=== PATIENT | male | born 1940 | race American Indian/Alaskan Native ===

== ENCOUNTER 2016-11-19 05:25 | Emergency (ER) | payer MEDICARE ==
[2016-11-19] MEDS ORDERED: NORMODYNE IV ONE (05:39)
[2016-11-19] MEDS: NORMODYNE IV ONE (05:45)
[2016-11-19] MEDS ORDERED: NARCAN 2 MG/2 ML ONE (05:47)
[2016-11-19] MEDS: NARCAN 2 MG/2 ML IV ONE (06:05)
[2016-11-19 06:28] LABS: Basophils % (Auto) 0.3 % (0.0-1.8); Eosinophils % (Auto) 0.4 % (0.0-4.3); Hematocrit 32.5 % (35.5-45.6); Hemoglobin 10.5 gm/dl (11.8-15.2); Mean Corpuscular HGB Conc 32 % (32-34); Mean Corpuscular Hemoglobin 31 pg (28-32); Mean Corpuscular Volume 95 fl (84-94); Platelet Count 183 K/mm3 (140-440); Red Blood Count 3.44 M/mm3 (3.65-5.03); Red Cell Distribution Width 14.8 % (13.2-15.2); White Blood Count 11.5 K/mm3 (4.5-11.0)
--- NOTE | 2016-11-19 06:33 | Cat Scan Report ---
FINAL REPORT PROCEDURE: CT HEAD/BRAIN WO CON TECHNIQUE: Computerized tomography of the head was performed without contrast material. HISTORY: Altered Mental Status COMPARISON: No prior studies are available for comparison. FINDINGS: Skull and scalp: Normal. Paranasal sinuses: Mucous retention cyst or polyp in the left maxillary sinus is noted. Slight opacification of the posterior sphenoid sinuses. Ventricles and subarachnoid spaces: Normal. Cerebrum: Mild atrophy and slight periventricular deep white matter changes are noted. Old benign calcifications identified in the basal ganglia region bilaterally.. Cerebellum and brainstem: No evidence of hemorrhage, acute infarction or mass. Vasculature: Normal. Comments: None. IMPRESSION: There is no evidence of an acute intracranial process. Mild atrophy and periventricular deep white matter changes.
[2016-11-19 06:39] LABS: Urine Drugs of Abuse Note Disclamer
[2016-11-19 06:46] LABS: Albumin 3.7 g/dL (3.9-5); Albumin/Globulin Ratio 1.1 %; BUN/Creatinine Ratio 13.39; Bilirubin,Total 0.2 mg/dL (0.1-1.2); Chloride 102.9 mmol/L (98-107); Magnesium 2.4 mg/dL (1.7-2.3); Potassium 3.7 mmol/L (3.6-5.0); Total Protein 7.2 g/dL (6.3-8.2)
--- NOTE | 2016-11-19 07:07 | Emergency Department Report ---
HPI - General Chief Complaint: Altered Mental Status Time Seen by Provider: 11/19/16 06:52 - HPI HPI: Room 8 The patient is a 76-year-old male presenting with a chief complaint of hypoglycemia. The patient was reportedly found at his residential with altered mental status. An Accu-Chek taken at that time revealed a glucose of 43. EMS states the patient was administered medication for the hypoglycemia with his altered mental status did not improve. Upon EMS arrival the patient had snoring respirations and pinpoint pupils with shallow respirations. EMS administered Narcan states the patient will showed signs of waking up." In the ED the patient's gave him a cookie and the patient began to perk up. The patient currently denies complaints. Patient specifically denies having pain of any type, nausea or shortness of breath. Location: Mental state Duration: [see above] Quality: Altered Severity: Moderate Modifying factors: [see above] Context: [see above] Mode of transportation: [not driving] ED Past Medical Hx - Past Medical History Previous Medical History?: Yes Hx Hypertension: Yes Hx Diabetes: Yes Hx Psychiatric Treatment: Yes (major depressive disoder) Additional medical history: Generalized weakness,Anemia,unspecified injury at C7 , retinal edema, Vit D deficiency, catarac unspecified eye,CVD,Neurogenic Bowel, intervertebral Disc Degeneration Lumbar region, muscle spasm,CKD,Benign Prostate Hyperplasia with lower urinary tract symptoms, intraoccular lens - Surgical History Past Surgical History?: Yes Additional Surgical History: B/L BKA - Family History Family history: no significant - Social History Smoking Status: Former Smoker Substance Use Type: None - Medications Home Medications: Home Medications Medication Instructions Recorded Confirmed Last Taken Type Calcium Acetate 2 tab PO TID 11/19/16 11/19/16 Unknown History Hydralazine HCl [Apresoline TAB] 2 tab PO BID 11/19/16 11/19/16 11/18/16 History Insulin Lispro [HumaLOG VIAL] 30 units SQ BID 11/19/16 11/19/16 11/18/16 History ED Review of Systems ROS: Stated complaint: LOW BLOOD GLUCOSE Other details as noted in HPI Comment: All other systems reviewed and negative Constitutional: denies: chills, fever Eyes: denies: eye pain, eye discharge, vision change ENT: denies: ear pain, throat pain Respiratory: denies: cough, shortness of breath, wheezing Cardiovascular: denies: chest pain, palpitations Endocrine: no symptoms reported Gastrointestinal: denies: abdominal pain, nausea, diarrhea Genitourinary: denies: urgency, dysuria Musculoskeletal: denies: back pain, joint swelling, arthralgia Skin: denies: rash, lesions Neurological: denies: headache, weakness, paresthesias Psychiatric: denies: anxiety, depression Hematological/Lymphatic: denies: easy bleeding, easy bruising Physical Exam - Physical Exam Vital Signs: Vital Signs 11/19/16 11/19/16 05:39 06:30 Pulse Rate 70 Respiratory 9 L 12 Rate Blood Pressure 234/98 O2 Sat by Pulse 100 100 Oximetry Physical Exam: GENERAL: The patient is well-developed well-nourished male lying on stretcher not appearing to be in acute distress. [] HEENT: Normocephalic. Atraumatic. Extraocular motions are intact. Patient has moist mucous membranes. NECK: Supple. No meningitic signs are noted. Trachea midline CHEST/LUNGS: Clear to auscultation. There is no respiratory distress noted. HEART/CARDIOVASCULAR: Regular. There is no tachycardia. There is no gallop rub or murmur. ABDOMEN: Abdomen is soft, nontender. Patient has normal bowel sounds. There is no abdominal distention. SKIN: There is no rash. There is no edema. There is no diaphoresis. NEURO: The patient is awake, alert, and oriented. The patient is cooperative. The patient has no focal neurologic deficits. The patient has normal speech. Cranial nerves II through XII grossly intact MUSCULOSKELETAL: There is no evidence of acute injury. ED Course Vital Signs 11/19/16 11/19/16 05:39 06:30 Pulse Rate 70 Respiratory 9 L 12 Rate Blood Pressure 234/98 O2 Sat by Pulse 100 100 Oximetry - Reevaluation(s) Reevaluation #1: 11/19/16 08:12 Status post male patient is maintaining his blood glucose. Patient is at his baseline mental status per . Patient and states they're both ready to leave ED Medical Decision Making - Lab Data Result diagrams: 11/19/16 06:00 11/19/16 06:00 Laboratory Tests 11/19/16 11/19/16 11/19/16 06:00 06:00 06:00 WBC 11.5 H RBC 3.44 L Hgb 10.5 L Hct 32.5 L MCV 95 H MCH 31 MCHC 32 RDW 14.8 Plt Count 183 Lymph % (Auto) 10.1 L [place] % (Auto) 8.5 H Eos % (Auto) 0.4 Baso % (Auto) 0.3 Lymph # 1.2 [place] # 1.0 H Eos # 0.1 Baso # 0.0 Seg Neutrophils % 80.7 H Seg Neutrophils # 9.3 H Sodium 144 Potassium 3.7 Chloride 102.9 Carbon Dioxide 29 Anion Gap 16 BUN 75 H Creatinine 5.6 H Estimated GFR 12 BUN/Creatinine Ratio 13.39 Glucose 154 H POC Glucose Lactic Acid 0.8 Calcium 10.0 Magnesium 2.4 H Total Bilirubin 0.2 AST 15 ALT 9 Alkaline Phosphatase 101 Total Protein 7.2 Albumin 3.7 L Albumin/Globulin Ratio 1.1 TSH Urine Color Urine Turbidity Urine pH Ur Specific [place] Urine Protein Urine Glucose (UA) Urine Ketones Urine Blood Urine Nitrite Urine Bilirubin Urine Urobilinogen Ur Leukocyte Esterase Urine WBC (Auto) Urine RBC (Auto) Urine Bacteria (Auto) Urine WBC Clumps Urine Mucus Urine Yeast (Budding) Salicylates Urine Opiates Screen Urine Methadone Screen Acetaminophen Ur Barbiturates Screen Ur Phencyclidine Scrn Ur Amphetamines Screen U Benzodiazepines Scrn Urine Cocaine Screen U Marijuana (THC) Screen Drugs of Abuse Note Plasma/Serum Alcohol 11/19/16 11/19/16 11/19/16 06:00 06:00 06:00 WBC RBC Hgb Hct MCV MCH MCHC RDW Plt Count Lymph % (Auto) [place] % (Auto) Eos % (Auto) Baso % (Auto) Lymph # [place] # Eos # Baso # Seg Neutrophils % Seg Neutrophils # Sodium Potassium Chloride Carbon Dioxide Anion Gap BUN Creatinine Estimated GFR BUN/Creatinine Ratio Glucose POC Glucose Lactic Acid Calcium Magnesium Total Bilirubin AST ALT Alkaline Phosphatase Total Protein Albumin Albumin/Globulin Ratio TSH 3.990 Urine Color Urine Turbidity Urine pH Ur Specific [place] Urine Protein Urine Glucose (UA) Urine Ketones Urine Blood Urine Nitrite Urine Bilirubin Urine Urobilinogen Ur Leukocyte Esterase Urine WBC (Auto) Urine RBC (Auto) Urine Bacteria (Auto) Urine WBC Clumps Urine Mucus Urine Yeast (Budding) Salicylates < 0.3 L Urine Opiates Screen Urine Methadone Screen Acetaminophen < 15.0 Ur Barbiturates Screen Ur Phencyclidine Scrn Ur Amphetamines Screen U Benzodiazepines Scrn Urine Cocaine Screen U Marijuana (THC) Screen Drugs of Abuse Note Plasma/Serum Alcohol 11/19/16 11/19/16 11/19/16 06:00 06:18 06:18 WBC RBC Hgb Hct MCV MCH MCHC RDW Plt Count Lymph % (Auto) [place] % (Auto) Eos % (Auto) Baso % (Auto) Lymph # [place] # Eos # Baso # Seg Neutrophils % Seg Neutrophils # Sodium Potassium Chloride Carbon Dioxide Anion Gap BUN Creatinine Estimated GFR BUN/Creatinine Ratio Glucose POC Glucose Lactic Acid Calcium Magnesium Total Bilirubin AST ALT Alkaline Phosphatase Total Protein Albumin Albumin/Globulin Ratio TSH Urine Color Yellow Urine Turbidity Cloudy Urine pH 6.0 Ur Specific [place] 1.010 Urine Protein 100 mg/dl Urine Glucose (UA) Neg Urine Ketones Neg Urine Blood Sm Urine Nitrite Neg Urine Bilirubin Neg Urine Urobilinogen < 2.0 Ur Leukocyte Esterase Lg Urine WBC (Auto) > 182.0 H Urine RBC (Auto) 14.0 Urine Bacteria (Auto) 1+ Urine WBC Clumps 3+ Urine Mucus Few Urine Yeast (Budding) Not Reportable Salicylates Urine Opiates Screen Presumptive negative Urine Methadone Screen Presumptive negative Acetaminophen Ur Barbiturates Screen Presumptive negative Ur Phencyclidine Scrn Presumptive negative Ur Amphetamines Screen Presumptive negative U Benzodiazepines Scrn Presumptive negative Urine Cocaine Screen Presumptive negative U Marijuana (THC) Screen Presumptive negative Drugs of Abuse Note Disclamer Plasma/Serum Alcohol < 0.01 11/19/16 06:40 WBC RBC Hgb Hct MCV MCH MCHC RDW Plt Count Lymph % (Auto) [place] % (Auto) Eos % (Auto) Baso % (Auto) Lymph # [place] # Eos # Baso # Seg Neutrophils % Seg Neutrophils # Sodium Potassium Chloride Carbon Dioxide Anion Gap BUN Creatinine Estimated GFR BUN/Creatinine Ratio Glucose POC Glucose 197 H Lactic Acid Calcium Magnesium Total Bilirubin AST ALT Alkaline Phosphatase Total Protein Albumin Albumin/Globulin Ratio TSH Urine Color Urine Turbidity Urine pH Ur Specific [place] Urine Protein Urine Glucose (UA) Urine Ketones Urine Blood Urine Nitrite Urine Bilirubin Urine Urobilinogen Ur Leukocyte Esterase Urine WBC (Auto) Urine RBC (Auto) Urine Bacteria (Auto) Urine WBC Clumps Urine Mucus Urine Yeast (Budding) Salicylates Urine Opiates Screen Urine Methadone Screen Acetaminophen Ur Barbiturates Screen Ur Phencyclidine Scrn Ur Amphetamines Screen U Benzodiazepines Scrn Urine Cocaine Screen U Marijuana (THC) Screen Drugs of Abuse Note Plasma/Serum Alcohol - EKG Data -: EKG Interpreted by Me EKG shows normal: sinus rhythm Rate: normal - EKG Data When compared to previous EKG there are: previous EKG unavailable Interpretation: nonspecific ST-T wave penelope (flattened/T-wave inversions in leads 1, aVL) - Radiology Data Radiology results: report reviewed (CT head), image reviewed (CT head) CT head (read by radiologist)-there is no evidence of acute intracranial process. Mild atrophy and periventricular deep white matter changes. - Differential Diagnosis hypoglycemia, ICH Critical care attestation.: If time is entered above; I have spent that time in minutes in the direct care of this critically ill patient, excluding procedure time. ED Disposition Clinical Impression: Hypoglycemia, Altered mental status, Renal insufficiency Disposition: DISCHARGED TO HOME OR SELFCARE Is pt being admited?: No Does the pt Need Aspirin: No Condition: Stable Instructions: Diabetic Hypoglycemia (ED) Additional Instructions: Return to the emergency department immediately should you develop worsening symptoms, fever, inability to tolerate food or liquid or any other concerns. Referrals: PRIMARY CARE, [Primary Care Provider] - 3-5 Days Time of Disposition: 08:12
[2016-11-19 07:17] LABS: Bacteria,Urine 1+ /HPF (Negative); Bilirubin,Urine NEG (Negative); Blood,Urine SM (Negative); Ketones,Urine NEG (Negative); Leukocyte Esterase,Urine LG (Negative); Mucus,Urine FEW /HPF; Nitrite,Urine NEG (Negative); Urobilinogen,Urine < 2.0 mg/dL (<2.0)
[2016-11-19 07:20] LABS: WBC,Urine > 182.0 /HPF (0.0-6.0)
[2016-11-19] MEDS: CATAPRES PO ONE (07:42)
[2016-11-19 08:15] VITALS: BP 172/70
== END 2016-11-19 09:10 | disposition home or self-care (01) ==
LOC: ED 05:25
DX: E11.649 Type 2 diabetes mellitus with hypoglycemia without coma (principal); R41.82 Altered mental status, unspecified; N28.9 Disorder of kidney and ureter, unspecified; I10 Essential (primary) hypertension; D64.9 Anemia, unspecified; F32.9 Major depressive disorder, single episode, unspecified
CPT/HCPCS: 36415; 70450; 80053; 80307; 81001; 82140; 82962; 83735; 84443; 85025; 93005; 93010; 96374; 96375; 99285; G0480; J2310; 80320

== ENCOUNTER 2016-12-01 09:39 | Emergency (ER) | payer OTHER ==
[2016-12-01 10:08] LABS: Basophils % (Auto) 0.4 % (0.0-1.8); Mean Corpuscular HGB Conc 28 % (32-34); Mean Corpuscular Hemoglobin 31 pg (28-32); Platelet Count 267 K/mm3 (140-440); Red Blood Count 2.85 M/mm3 (3.65-5.03); Red Cell Distribution Width 17.3 % (13.2-15.2); White Blood Count 9.7 K/mm3 (4.5-11.0)
[2016-12-01 10:10] LABS: Hemoglobin 8.9 gm/dl (11.8-15.2)
[2016-12-01 10:11] LABS: Hematocrit 32.2 % (35.5-45.6); Mean Corpuscular Volume 113 fl (84-94)
[2016-12-01 10:22] LABS: BUN/Creatinine Ratio 11.92; Calcium 8.8 mg/dL (8.4-10.2); Chloride 89.9 mmol/L (98-107)
[2016-12-01] MEDS ORDERED: NACL 0.9% 1000 ML 1,000 ML IV ONE (10:22)
[2016-12-01] MEDS ORDERED: TYLENOL PR ONE (10:23)
[2016-12-01 10:26] LABS: Potassium 7.1 mmol/L (3.6-5.0)
[2016-12-01] MEDS ORDERED: D50W (25GM) IV PRN (10:26)
--- NOTE | 2016-12-01 10:28 | Emergency Department Report ---
ED General Adult HPI - General Chief complaint: Altered Mental Status Stated complaint: POSS DKA Time Seen by Provider: 12/01/16 10:17 Source: patient, EMS Mode of arrival: Stretcher Limitations: Altered Mental Status - History of Present Illness Initial comments: Remarkably this patient was in the hospital and discharged a few days ago with fairly good appearing laboratory database. Apparently, he refused dialysis. In addition as I discussed with his it appears that he declined CPR and mechanical ventilation as well. The family also declined long term placement. He has diabetes and renal insufficiency/end-stage. Review of his previous blood cultures show negative results. He had Klebsiella in his urine which was sensitive to third and fourth generation cephalosporins. did not know what antibiotic he was prescribed on discharge. The states that he was awake and alert last night which is surprising considering his obtunded in critical condition of presentation. He is able to state his name and that he is not in pain. However he is stuporous and has to be awoken with stimuli. He is quite tachypnea and obviously with Kussmaul respirations. The states that his condition radical he changed this morning. -: hour(s) - Related Data Previous Rx's Medication Instructions Recorded Last Taken Type Calcium Acetate 2 tab PO TID #90 11/29/16 Unknown Rx Cyproheptadine HCl 4 mg PO BID #60 11/29/16 Unknown Rx Docusate Sodium [Colace CAP] 100 mg PO BID #60 11/29/16 Unknown Rx Doxycycline [Vibramycin CAP] 100 mg PO Q12HR #14 capsule 11/29/16 Unknown Rx Ferrous Sulfate [Feosol 325 MG tab] 325 mg PO QDAY #30 tablet 11/29/16 Unknown Rx Insulin Lispro Prot/Lispro 30 unit SQ BID #30 11/29/16 Unknown Rx [HumaLOG Mix 75/25 Vial] Labetalol [Normodyne TAB] 400 mg PO BID #4 wk 11/29/16 Unknown Rx Metoprolol [Lopressor TAB] 100 mg PO BID #60 tablet 11/29/16 Unknown Rx Mirtazapine [Remeron] 15 mg PO QHS #30 tablet 11/29/16 Unknown Rx NIFEdipine XL [Procardia Xl] 60 mg PO DAILY #30 tablet 11/29/16 Unknown Rx Pravastatin Sodium [Pravastatin] 20 mg PO QHS #30 11/29/16 Unknown Rx Sennosides Tab [Senokot] 8.6 mg PO QHS #30 tablet 11/29/16 Unknown Rx Sodium Bicarbonate 650 mg PO BID #60 tablet 11/29/16 Unknown Rx Tamsulosin [Flomax] 0.4 mg PO QHS #30 capsule 11/29/16 Unknown Rx hydrALAZINE [Apresoline TAB] 100 mg PO BID #60 tab 11/29/16 Unknown Rx Allergies Allergy/AdvReac Type Severity Reaction Status Date / Time No Known Allergies Allergy Verified 11/19/16 06:07 ED Review of Systems ROS: Stated complaint: POSS DKA Other details as noted in HPI Comment: Unobtainable due to pts medical conditions ED Past Medical Hx - Past Medical History Previous Medical History?: Yes Hx Hypertension: Yes Hx Diabetes: Yes Hx Psychiatric Treatment: Yes (major depressive disoder) Hx HIV: No Additional medical history: Generalized weakness,Anemia,unspecified injury at C7 , retinal edema, Vit D deficiency, catarac unspecified eye,CVD,Neurogenic Bowel, intervertebral Disc Degeneration Lumbar region, muscle spasm,CKD,Benign Prostate Hyperplasia with lower urinary tract symptoms, intraoccular lens - Surgical History Past Surgical History?: Yes Additional Surgical History: B/L BKA - Social History Smoking Status: Never Smoker Substance Use Type: None - Medications Home Medications: Home Medications Medication Instructions Recorded Confirmed Last Taken Type Calcium Acetate 2 tab PO TID #90 11/29/16 11/20/16 Unknown Rx Cyproheptadine HCl 4 mg PO BID #60 11/29/16 11/20/16 Unknown Rx Docusate Sodium [Colace CAP] 100 mg PO BID #60 11/29/16 11/20/16 Unknown Rx Doxycycline [Vibramycin CAP] 100 mg PO Q12HR #14 capsule 11/29/16 Unknown Rx Ferrous Sulfate [Feosol 325 MG tab] 325 mg PO QDAY #30 tablet 11/29/16 Unknown Rx Insulin Lispro Prot/Lispro 30 unit SQ BID #30 11/29/16 11/20/16 Unknown Rx [HumaLOG Mix 75/25 Vial] Labetalol [Normodyne TAB] 400 mg PO BID #4 wk 11/29/16 Unknown Rx Metoprolol [Lopressor TAB] 100 mg PO BID #60 tablet 11/29/16 Unknown Rx Mirtazapine [Remeron] 15 mg PO QHS #30 tablet 11/29/16 Unknown Rx NIFEdipine XL [Procardia Xl] 60 mg PO DAILY #30 tablet 11/29/16 Unknown Rx Pravastatin Sodium [Pravastatin] 20 mg PO QHS #30 11/29/16 11/20/16 Unknown Rx Sennosides Tab [Senokot] 8.6 mg PO QHS #30 tablet 11/29/16 Unknown Rx Sodium Bicarbonate 650 mg PO BID #60 tablet 11/29/16 Unknown Rx Tamsulosin [Flomax] 0.4 mg PO QHS #30 capsule 11/29/16 Unknown Rx hydrALAZINE [Apresoline TAB] 100 mg PO BID #60 tab 11/29/16 Unknown Rx ED Physical Exam - General Limitations: Altered Mental Status, Other (respiratory distress) General appearance: other ([place]ul respirations) - Eye Eye exam: Present: PERRL. Absent: scleral icterus - ENT ENT exam: Present: mucous membranes dry - Neck Neck exam: Absent: tenderness, meningismus - Respiratory Respiratory exam: Present: normal lung sounds bilaterally, accessory muscle use - Cardiovascular Cardiovascular Exam: Present: tachycardia - GI/Abdominal GI/Abdominal exam: Present: soft, normal bowel sounds. Absent: distended, tenderness, guarding, rebound, rigid - Extremities Exam Extremities exam: Present: normal inspection - Back Exam Back exam: Present: other (did not inspect) - Neurological Exam Neurological exam: Present: other (obtunded) - Skin Skin exam: Present: pallor ED Course - Reevaluation(s) Reevaluation #1: I initiated medical resuscitative efforts. We gave the patient fluids, bicarbonate, insulin and an insulin drip. Empiric antibiotics were begun. I counseled the as to the outlook medically. The patient did previously refused dialysis. I do not think he can survive without dialysis. He also did previously refuse CPR and a conical ventilation. I offered the medical stabilization. However the patient's prognosis would remain rather poor with out aggressive intervention to include dialysis, etc. The expressed understanding. She signed the DO NOT RESUSCITATE paperwork. Ultimately the patient was seen by Dr. Srinivasan. He is informed me that the has elected inpatient hospice care. Patient will be transferred. 12/01/16 15:23 ED Medical Decision Making - Lab Data Result diagrams: 12/01/16 09:49 12/01/16 13:10 Laboratory Results - last 24 hr 12/01/16 12/01/16 12/01/16 09:49 09:49 09:49 WBC 9.7 RBC 2.85 L Hgb 8.9 L Hct 32.2 L D MCV 113 H D MCH 31 MCHC 28 L RDW 17.3 H Plt Count 267 Lymph % (Auto) 7.6 L [place] % (Auto) 6.4 Eos % (Auto) 0.0 Baso % (Auto) 0.4 Lymph # 0.7 L [place] # 0.6 Eos # 0.0 Baso # 0.0 Seg Neutrophils % 85.6 H Seg Neutrophils # 8.3 H VBG pH 7.166 L* Chloride 89.9 L BUN 68 H Creatinine 5.7 H Estimated GFR 12 BUN/Creatinine Ratio 11.92 Calcium 8.8 - EKG Data -: EKG Interpreted by Ut EKG shows normal: sinus rhythm Rate: normal - EKG Data Interpretation: other (peaked T waves) - Radiology Data Chest x-ray shows aortic calcification but no acute process Critical Care Time: Yes Critical care time in (mins) excluding proc time.: 55 Critical care attestation.: If time is entered above; I have spent that time in minutes in the direct care of this critically ill patient, excluding procedure time. ED Disposition Clinical Impression: DKA, type 1 Qualifiers: Diabetes mellitus complication detail: with coma Qualified Code(s): E10.11 - Type 1 diabetes mellitus with ketoacidosis with coma Sepsis Qualifiers: Sepsis type: sepsis due to unspecified organism Qualified Code(s): A41.9 - Sepsis, unspecified organism Disposition: DC/TX ANOTHER TYPE HEALTHCARE Is pt being admited?: No Does the pt Need Aspirin: No Condition: Stable Instructions: Diabetes Mellitus Type 2 in Adults (ED) Referrals: PRIMARY CARE, [Primary Care Provider] - 3-5 Days Time of Disposition: 15:29
[2016-12-01] MEDS ORDERED: ROCEPHIN/NS 1 GM/50 ML 1 GM/50 ML BAG IV ONE (10:46)
--- NOTE | 2016-12-01 10:53 | XRay Report ---
AP CHEST :12/01/16 09:39:00 CLINICAL: Followup right perihilar infiltrate. COMPARISON:11/20/16 FINDINGS: The right hilum is mildly prominent due to rotation.However, the previously described right perihilar infiltrate has resolved. Lungs are clear. Normal heart size. Aortic calcification. The bones and soft tissues are unremarkable.No tubes or lines. IMPRESSION: No acute cardiopulmonary process. Resolution of right perihilar infiltrate.
[2016-12-01] MEDS ORDERED: NovoLIN R 100 UNITS in NACL 0.9% 99 ML IV SCH (11:00)
[2016-12-01] MEDS ORDERED: VANCOMYCIN 2,000 MG in NACL 0.9% 500 ML 500 ML IV ONE (11:00)
[2016-12-01] MEDS ORDERED: VANCOMYCIN PHARMACY TO DOSE IV SCH (11:00)
[2016-12-01] MEDS ORDERED: SODIUM BICARBONATE IV ONE (11:00)
[2016-12-01 11:07] LABS: Magnesium 2.6 mg/dL (1.7-2.3); Phosphorous 8.5 mg/dL (2.5-4.5)
[2016-12-01 11:09] LABS: Alanine Aminotransferase 31 units/L (7-56); Albumin 3.1 g/dL (3.9-5); Albumin/Globulin Ratio 0.7 %; Alkaline Phosphatase 106 units/L (35-129); Lipase 238 units/L (13-60); Total Protein 7.3 g/dL (6.3-8.2)
[2016-12-01 11:10] LABS: Bilirubin,Direct < 0.2 mg/dL (0-0.2)
[2016-12-01 11:12] LABS: Partial Thromboplastin Time 34.6 Sec. (24.2-36.6)
[2016-12-01 11:19] LABS: INR 1.12 (0.87-1.13)
[2016-12-01 11:20] LABS: Bacteria,Urine 1+ /HPF (Negative); Bilirubin,Urine NEG (Negative); Blood,Urine MOD (Negative); Ketones,Urine 80 mg/dL (Negative); Leukocyte Esterase,Urine NEG (Negative); Mucus,Urine FEW /HPF; Nitrite,Urine NEG (Negative); Urobilinogen,Urine < 2.0 mg/dL (<2.0)
[2016-12-01 11:56] LABS: BUN/Creatinine Ratio 12.32; Calcium 8.8 mg/dL (8.4-10.2); Chloride 91.4 mmol/L (98-107)
[2016-12-01] MEDS ORDERED: ZOSYN/NS 3.375GM/50ML 50 ML IV SCH (12:00)
--- NOTE | 2016-12-01 13:18 | History and Physical Report ---
History of Present Illness Chief complaint: Feeling sick Medications and Allergies Allergies Allergy/AdvReac Type Severity Reaction Status Date / Time No Known Allergies Allergy Verified 11/19/16 06:07 Home Medications Medication Instructions Recorded Confirmed Last Taken Type Calcium Acetate 2 tab PO TID #90 11/29/16 11/20/16 Unknown Rx Cyproheptadine HCl 4 mg PO BID #60 11/29/16 11/20/16 Unknown Rx Docusate Sodium [Colace CAP] 100 mg PO BID #60 11/29/16 11/20/16 Unknown Rx Doxycycline [Vibramycin CAP] 100 mg PO Q12HR #14 capsule 11/29/16 Unknown Rx Ferrous Sulfate [Feosol 325 MG tab] 325 mg PO QDAY #30 tablet 11/29/16 Unknown Rx Insulin Lispro Prot/Lispro 30 unit SQ BID #30 11/29/16 11/20/16 Unknown Rx [HumaLOG Mix 75/25 Vial] Labetalol [Normodyne TAB] 400 mg PO BID #4 wk 11/29/16 Unknown Rx Metoprolol [Lopressor TAB] 100 mg PO BID #60 tablet 11/29/16 Unknown Rx Mirtazapine [Remeron] 15 mg PO QHS #30 tablet 11/29/16 Unknown Rx NIFEdipine XL [Procardia Xl] 60 mg PO DAILY #30 tablet 11/29/16 Unknown Rx Pravastatin Sodium [Pravastatin] 20 mg PO QHS #30 11/29/16 11/20/16 Unknown Rx Sennosides Tab [Senokot] 8.6 mg PO QHS #30 tablet 11/29/16 Unknown Rx Sodium Bicarbonate 650 mg PO BID #60 tablet 11/29/16 Unknown Rx Tamsulosin [Flomax] 0.4 mg PO QHS #30 capsule 11/29/16 Unknown Rx hydrALAZINE [Apresoline TAB] 100 mg PO BID #60 tab 11/29/16 Unknown Rx Active Meds: Active Medications Dextrose (D50w (25gm)) 0 ml IV ONCE PRN PRN Reason: Hypoglycemia Insulin Human Regular 100 (units/ Sodium Chloride) 100 mls @ 1 mls/hr IV TITR CHASE; 1 UNITS/HR PRN Reason: Protocol Last Admin: 12/01/16 12:27 Dose: 8 units/hr, 8 mls/hr Vancomycin HCl (Vancomycin Pharmacy To Dose) 1 each IV PKCONSULT CHASE PRN Reason: Protocol Results - Labs CBC & Chem 7: 12/01/16 09:49 12/01/16 14:45 Labs: Abnormal lab results 12/01/16 12/01/16 12/01/16 Range/Units 09:49 09:49 09:49 RBC 2.85 L (3.65-5.03) M/mm3 Hgb 8.9 L (11.8-15.2) gm/dl Hct 32.2 L D (35.5-45.6) % MCV 113 H D (84-94) fl MCHC 28 L (32-34) % RDW 17.3 H (13.2-15.2) % Lymph % (Auto) 7.6 L (13.4-35.0) % Lymph # 0.7 L (1.2-5.4) K/mm3 Seg Neutrophils % 85.6 H (40.0-70.0) % Seg Neutrophils # 8.3 H (1.8-7.7) K/mm3 VBG pH 7.166 L* (7.320-7.420) Sodium 134 L D (137-145) mmol/L Potassium 7.1 H* D (3.6-5.0) mmol/L Chloride 89.9 L (98-107) mmol/L Carbon Dioxide 4 L* D (22-30) mmol/L BUN 68 H (9-20) mg/dL Creatinine 5.7 H (0.8-1.5) mg/dL Glucose 1011 H* (75-100) mg/dL Lactic Acid (0.7-2.0) mmol/L Phosphorus (2.5-4.5) mg/dL Magnesium (1.7-2.3) mg/dL Troponin T (0.00-0.029) ng/mL NT-Pro-B Natriuret Pep (0-900) pg/mL Albumin (3.9-5) g/dL Triglycerides (2-149) mg/dL HDL Cholesterol (40-59) mg/dL Lipase (13-60) units/L 12/01/16 12/01/16 12/01/16 Range/Units 10:30 10:32 10:32 RBC (3.65-5.03) M/mm3 Hgb (11.8-15.2) gm/dl Hct (35.5-45.6) % MCV (84-94) fl MCHC (32-34) % RDW (13.2-15.2) % Lymph % (Auto) (13.4-35.0) % Lymph # (1.2-5.4) K/mm3 Seg Neutrophils % (40.0-70.0) % Seg Neutrophils # (1.8-7.7) K/mm3 VBG pH (7.320-7.420) Sodium 135 L (137-145) mmol/L Potassium 7.0 H* (3.6-5.0) mmol/L Chloride 91.4 L (98-107) mmol/L Carbon Dioxide 4 L* (22-30) mmol/L BUN 69 H (9-20) mg/dL Creatinine 5.6 H (0.8-1.5) mg/dL Glucose 997 H* (75-100) mg/dL Lactic Acid 2.4 H* (0.7-2.0) mmol/L Phosphorus (2.5-4.5) mg/dL Magnesium (1.7-2.3) mg/dL Troponin T 0.219 H* (0.00-0.029) ng/mL NT-Pro-B Natriuret Pep (0-900) pg/mL Albumin (3.9-5) g/dL Triglycerides 220 H (2-149) mg/dL HDL Cholesterol 17 L (40-59) mg/dL Lipase (13-60) units/L 12/01/16 12/01/16 Range/Units 10:32 10:32 RBC (3.65-5.03) M/mm3 Hgb (11.8-15.2) gm/dl Hct (35.5-45.6) % MCV (84-94) fl MCHC (32-34) % RDW (13.2-15.2) % Lymph % (Auto) (13.4-35.0) % Lymph # (1.2-5.4) K/mm3 Seg Neutrophils % (40.0-70.0) % Seg Neutrophils # (1.8-7.7) K/mm3 VBG pH (7.320-7.420) Sodium (137-145) mmol/L Potassium (3.6-5.0) mmol/L Chloride (98-107) mmol/L Carbon Dioxide (22-30) mmol/L BUN (9-20) mg/dL Creatinine (0.8-1.5) mg/dL Glucose (75-100) mg/dL Lactic Acid (0.7-2.0) mmol/L Phosphorus 8.50 H (2.5-4.5) mg/dL Magnesium 2.60 H (1.7-2.3) mg/dL Troponin T (0.00-0.029) ng/mL NT-Pro-B Natriuret Pep 57330 H (0-900) pg/mL Albumin 3.1 L (3.9-5) g/dL Triglycerides (2-149) mg/dL HDL Cholesterol (40-59) mg/dL Lipase 238 H (13-60) units/L
[2016-12-01 13:41] LABS: BUN/Creatinine Ratio 12.14; Calcium 8.4 mg/dL (8.4-10.2); Chloride 96.4 mmol/L (98-107); Potassium 5.8 mmol/L (3.6-5.0)
[2016-12-01 15:34] LABS: BUN/Creatinine Ratio 12.77; Calcium 8.4 mg/dL (8.4-10.2); Chloride 97.1 mmol/L (98-107); Potassium 5.8 mmol/L (3.6-5.0)
[2016-12-01 19:09] VITALS: BP 152/52
[2016-12-02] MEDS ORDERED: ROCEPHIN/NS 2 GM/100 ML 2 GM/100 ML BAG IV ONE (10:31)
--- NOTE | 2016-12-02 16:20 | Consultation ---
History of Present Illness - Reason for Consult Consult date: 12/01/16 Requesting physician: LOU TRINIDAD - History of Present Illness 76 YO male with HTN, DM, Anemia, BPH, Debility, DKA, Depression, ESRD refuses dialysis presents to ED for evaluation. Pt unable to provide history. History taken from who is at bedside. Pt desire no further medical care and is DNR. PT seen and evaluted in ED and found to be in severe distress. Pt stuporous. Pt family informed of prognosis. Pt elects to have inpatient hospice care. Hospice notified. Pt seen and evaluated by hospice nurse and admitted to inpatient hospice under care of the lpn medical assistant. Past History Past Medical History: diabetes, ESRD, hypertension Past Surgical History: Other (B BKA) Social history: , lives with family. denies: smoking, alcohol abuse, prescription drug abuse Family history: no significant family history (reviewed) Medications and Allergies Allergies Allergy/AdvReac Type Severity Reaction Status Date / Time No Known Allergies Allergy Verified 11/19/16 06:07 Home Medications Medication Instructions Recorded Confirmed Last Taken Type Calcium Acetate 2 tab PO TID #90 11/29/16 11/20/16 Unknown Rx Cyproheptadine HCl 4 mg PO BID #60 11/29/16 11/20/16 Unknown Rx Docusate Sodium [Colace CAP] 100 mg PO BID #60 11/29/16 11/20/16 Unknown Rx Doxycycline [Vibramycin CAP] 100 mg PO Q12HR #14 capsule 11/29/16 Unknown Rx Ferrous Sulfate [Feosol 325 MG tab] 325 mg PO QDAY #30 tablet 11/29/16 Unknown Rx Insulin Lispro Prot/Lispro 30 unit SQ BID #30 11/29/16 11/20/16 Unknown Rx [HumaLOG Mix 75/25 Vial] Labetalol [Normodyne TAB] 400 mg PO BID #4 wk 11/29/16 Unknown Rx Metoprolol [Lopressor TAB] 100 mg PO BID #60 tablet 11/29/16 Unknown Rx Mirtazapine [Remeron] 15 mg PO QHS #30 tablet 11/29/16 Unknown Rx NIFEdipine XL [Procardia Xl] 60 mg PO DAILY #30 tablet 11/29/16 Unknown Rx Pravastatin Sodium [Pravastatin] 20 mg PO QHS #30 11/29/16 11/20/16 Unknown Rx Sennosides Tab [Senokot] 8.6 mg PO QHS #30 tablet 11/29/16 Unknown Rx Sodium Bicarbonate 650 mg PO BID #60 tablet 11/29/16 Unknown Rx Tamsulosin [Flomax] 0.4 mg PO QHS #30 capsule 11/29/16 Unknown Rx hydrALAZINE [Apresoline TAB] 100 mg PO BID #60 tab 11/29/16 Unknown Rx Review of Systems ROS unobtainable: due to mental status Exam - Constitutional Vitals: Temp Pulse Resp BP Pulse Ox 79 19 152/52 100 12/01/16 19:00 12/01/16 19:00 12/01/16 19:00 12/01/16 14:22 General appearance: Present: severe distress - Neck Neck: Present: supple - Respiratory Respiratory: bilateral: CTA - Cardiovascular Rhythm: regular Heart Sounds: Present: S1 & S2 - Extremities Extremities: no ischemia Extremity abnormal: edema Peripheral Pulses: within normal limits - Abdominal General gastrointestinal: Present: soft, non-tender, non-distended Male genitourinary: Present: normal - Integumentary Integumentary: Present: clear, dry, decreased turgor - Musculoskeletal Musculoskeletal: generalized weakness - Psychiatric Psychiatric: no intact judgment & insight, no memory intact Results - Labs CBC & Chem 7: 12/01/16 09:49 12/01/16 14:45 Assessment and Plan - Patient Problems (1) ESRD (end stage renal disease) Status: Acute Plan to address problem: Pt refused dialysis. Pt elects to transfer patient to inpatient hospice care. Pt informed of hospice choices. Pt elects inpatient hospice care with [facility]. Pt discharged to hospice under care of lpn medical assistant. (2) Encephalopathy Status: Acute Plan to address problem: supportive care, (3) DKA, type 1 Status: Acute Qualifiers: Diabetes mellitus complication detail: with coma Qualified Code(s): E10.11 - Type 1 diabetes mellitus with ketoacidosis with coma Plan to address problem: supportive care (4) Sepsis Status: Acute Qualifiers: Sepsis type: sepsis due to unspecified organism Qualified Code(s): A41.9 - Sepsis, unspecified organism Plan to address problem: supportive care.
[2016-12-05 05:22] LABS: B-Hydroxybutyrate 12.6 mmol/L (0.2 - 0.28)
== END 2016-12-01 20:35 | disposition other institution (70) ==
LOC: ED 09:39
DX: E10.11 Type 1 diabetes mellitus with ketoacidosis with coma (principal); A41.9 Sepsis, unspecified organism; E11.22 Type 2 diabetes mellitus with diabetic chronic kidney disease; I12.9 Hypertensive chronic kidney disease with stage 1 through stage 4 chronic kidney disease, or unspecified chronic kidney disease; N18.9 Chronic kidney disease, unspecified; D64.9 Anemia, unspecified; Z79.4 Long term (current) use of insulin
CPT/HCPCS: 36415; 71010; 80048; 80061; 80074; 81001; 82010; 82140; 82805; 82962; 83690; 83735; 83880; 84100; 84484; 85025; 85610; 85730; 86850; 86900; 86901; 87040; 87086; 93005; 93010; 96365; 96375; 99291; J0696; J7030; J1815; J3370; J7040